=== PATIENT | male | born 1975 | race Caucasian/White ===

== ENCOUNTER → 2020-01-02 07:27 | Outpatient (CLI) | payer OTHER, SELFPAY ==
--- NOTE | 2020-01-02 | DI.MRI.S_ITS ---
PROCEDURE: MR HEAD/BRAIN WO/W CON INDICATIONS: Malignant neoplasm of brain, unspecified TECHNIQUE: Noncontrast axial T1 spin echo, axial T2 fast spin echo, sagittal and axial FLAIR, coronal T2 fast spin echo, axial gradient echo, axial diffusion and ADC through the brain. After the administration of contrast, axial and coronal 3D VIBE or T1 spin echo with fat saturation through the brain. COMPARISON: Outside Film, MR, MR BRAIN WITH/WITHOUT CONTRAST, 11/01/2019, 10:19. FINDINGS: These images again demonstrate postsurgical changes of right frontal craniectomy for resection of tumor in the right greater than left frontal lobes. Chronic mild dural thickening and hyper enhancement adjacent to the bone flap is unchanged and not unexpected. There is no other abnormal enhancement within or adjacent to the resection cavity to indicate recurrent disease. Nonenhancing flair signal abnormality adjacent to the resection cavity has not significantly changed when compared with 11/01/2019 examination. This again involves the chin you have the corpus callosum and subependymal margin of the ventricle along the left frontal horn. There no findings of mass effect or midline shift. Chronic lacunar infarct in the left lentiform nucleus is unchanged. There is no restricted diffusion to indicate recent ischemia. The major intracranial vascular flow-related signal voids are maintained. A few scattered punctate T2/FLAIR hyperintense foci are consistent with chronic microvascular ischemic change. IMPRESSION: Stable appearance when compared with 11/01/2019 examination, again with no pathologic enhancement within or adjacent to the resection cavity. Nonenhancing T2 signal abnormality adjacent to the resection cavity is unchanged in extent, suspicious for nonenhancing tumor. Dictated by: Agustin Joe M.D. on 01/02/2020 at 8:51 Approved by: Agustin Joe M.D. on 01/02/2020 at 9:00
--- NOTE | 2020-01-24 15:44 | ONC.MSW ---
Description: New Referral Navigation T/C, Care Coordination Activity: SCRAP BALLER made several calls between [facility] and [facility], [facility]. Pt's referral and auth were reportedly not done correctly on their end when they made the referral, then further errors were made when [facility] called re: referring him to [facility]. Pt does in fact have [facility]. The supervisor patching from [facility] helped this SCRAP BALLER in sorting out all of the details, she said that we will have the auth by tomorrow morning, Tuesday at the latest, and that this is all being done urgently by all involved. Called [facility] and spoke with the referring provider's nurse, who also sent over the tx plan for pt's Avastin. He will be on cycle 34, and is due next week, Tuesday. SCRAP BALLER informed him that we will still need to do the prior auth for the Avastin once Dr. Morris puts the order in, which can take a few days for authorization, but that we should be able to get him going [place], hopefully next week. Plan: This SCRAP BALLER will f/u Tuesday to confirm the auth has been received, and will meet with pt Tuesday as planned.
== END ==
PROVIDERS: PCP Family Medicine; Referring Provider Family Medicine; Visit Provider Internal Medicine Hematology & Oncology
DX: C71.9 Malignant neoplasm of brain, unspecified (principal)
CPT/HCPCS: 70553

== ENCOUNTER → 2020-02-29 08:13 | Outpatient (CLI) | payer MEDICARE, OTHER, SELFPAY ==
--- NOTE | 2020-02-29 08:15 | DI.MRI.S_ITS ---
PROCEDURE: MR HEAD/BRAIN WO/W CON INDICATIONS: astrocytoma TECHNIQUE: Noncontrast axial T1 spin echo, axial T2 fast spin echo, sagittal and axial FLAIR, coronal T2 fast spin echo, axial gradient echo, axial diffusion and ADC through the brain. After the administration of contrast, axial and coronal 3D VIBE or T1 spin echo with fat saturation through the brain. COMPARISON: Outside Film, MR, MR BRAIN WITH/WITHOUT CONTRAST, 04/18/2018, 10:55. Outside Film, MR, MR BRAIN WITH/WITHOUT CONTRAST, 11/01/2019, 10:19. Outside Film, MR, MR BRAIN WITH/WITHOUT CONTRAST, 08/21/2019, 10:29. Outside Film, MR, MR BRAIN WITH/WITHOUT CONTRAST, 05/28/2019, 13:21. Outside Film, MR, MR BRAIN WITH/WITHOUT CONTRAST, 03/20/2019, 9:18. Outside Film, MR, MR BRAIN WITH/WITHOUT CONTRAST, 01/15/2019, 11:58. Outside Film, MR, MR BRAIN WITH/WITHOUT CONTRAST, 11/16/2018, 13:54. Outside Film, MR, MR BRAIN WITH/WITHOUT CONTRAST, 11/16/2018, 13:54. [facility], MR, MR HEAD/BRAIN WO/W CON, 01/02/2020, 7:59. FINDINGS: Image quality: Excellent. CSF Spaces: Basal cisterns are patent. No extra-axial fluid collections. Ventricles are stable in size and shape. Postsurgical changes related to right frontal craniotomy are again noted. There is underlying smooth dural enhancement which may be postoperative in nature. Within the resection cavity, there is unchanged T2 hyperintense encephalomalacia. No definite focal abnormal or masslike enhancement identified. Overall stable appearance since the prior study. No evidence of acute ischemia. Intracranial flow voids are preserved. Orbits grossly unremarkable. Sinuses: Sinuses and mastoids appear clear. IMPRESSION: Overall, stable examination since 01/02/20 Dictated by: Bobby Vaca M.D. on 02/29/2020 at 9:47 Approved by: Bobby Vaca M.D. on 02/29/2020 at 9:56
== END ==
PROVIDERS: PCP Family Medicine; Referring Provider Internal Medicine Hematology & Oncology; Visit Provider Internal Medicine Hematology & Oncology
DX: C71.1 Malignant neoplasm of frontal lobe (principal); G93.89 Other specified disorders of brain; Z98.890 Other specified postprocedural states
CPT/HCPCS: 70553

== ENCOUNTER → 2020-05-01 12:04 | Outpatient (CLI) | payer MEDICARE, OTHER, SELFPAY ==
--- NOTE | 2020-05-01 12:08 | DI.MRI.S_ITS ---
PROCEDURE: MR HEAD/BRAIN WO/W CON INDICATIONS: Astrocytoma TECHNIQUE: Noncontrast axial T1 spin echo, axial T2 fast spin echo, sagittal and axial FLAIR, coronal T2 fast spin echo, axial gradient echo, axial diffusion and ADC through the brain. After the administration of contrast, axial and coronal 3D VIBE or T1 spin echo with fat saturation through the brain. COMPARISON: Outside Film, MR, MR BRAIN WITH/WITHOUT CONTRAST, 11/01/2019, 10:19. Outside Film, MR, MR BRAIN WITH/WITHOUT CONTRAST, 06/19/2018, 9:49. Outside Film, MR, MR BRAIN WITH/WITHOUT CONTRAST, 06/19/2018, 9:49. Outside Film, MR, MR BRAIN WITH/WITHOUT CONTRAST, 04/18/2018, 10:55. Outside Film, MR, MR BRAIN WITH/WITHOUT CONTRAST, 01/06/2018, 10:15. [facility], MR, MR HEAD/BRAIN WO/W CON, 01/02/2020, 7:59. [facility], MR, MR HEAD/BRAIN WO/W CON, 02/29/2020, 8:32. FINDINGS: Image quality: Excellent. CSF Spaces: Basal cisterns are patent. No extra-axial fluid collections. Ventricles are normal in size and shape. Brain: There is a 5.5 x 5.4 cm cavity in the right inferior frontal consistent with postsurgical change. There is peripheral vasogenic edema and gliosis. On postcontrast images, there is no abnormal postcontrast enhancement around right frontal surgical bed. No findings to suggest recurrent mass. No mass effect or midline shift. No intracranial bleeds. Diffusion-weighted images demonstrate no acute ischemic insults. No chronic ischemic insults. Normal intravascular flow voids are present. Skull and face: Calvarial marrow is normal in signal. Orbits appear normal. Sinuses: Sinuses and mastoids appear clear. IMPRESSION: Stable postsurgical changes in the right frontal lobe. No findings to suggest recurrent mass. No abnormal intracranial enhancement is present. Dictated by: Ivette Peacock M.D. on 05/01/2020 at 13:57 Approved by: Ivette Peacock M.D. on 05/01/2020 at 14:45
== END ==
PROVIDERS: PCP Family Medicine; Referring Provider Internal Medicine Hematology & Oncology; Visit Provider Internal Medicine Hematology & Oncology
DX: C71.1 Malignant neoplasm of frontal lobe (principal)
CPT/HCPCS: 70553

== ENCOUNTER → 2020-07-23 13:09 | Outpatient (CLI) | payer MEDICARE, OTHER, SELFPAY ==
--- NOTE | 2020-07-23 13:12 | DI.MRI.S_ITS ---
PROCEDURE: MR HEAD/BRAIN WO/W CON INDICATIONS: astrocytoma of the brain TECHNIQUE: Noncontrast axial T1 spin echo, axial T2 fast spin echo, sagittal and axial FLAIR, coronal T2 fast spin echo, axial gradient echo, axial diffusion and ADC through the brain. After the administration of contrast, axial and coronal 3D VIBE or T1 spin echo with fat saturation through the brain. COMPARISON: [facility], MR, MR HEAD/BRAIN WO/W CON, 02/29/2020, 8:32. [facility], MR, MR HEAD/BRAIN WO/W CON, 01/02/2020, 7:59. Outside Film, MR, MR BRAIN WITH/WITHOUT CONTRAST, 11/01/2019, 10:19. Outside Film, MR, MR BRAIN WITH/WITHOUT CONTRAST, 08/21/2019, 10:29. Outside Film, MR, MR BRAIN WITH/WITHOUT CONTRAST, 05/28/2019, 13:21. [facility], MR, MR HEAD/BRAIN WO/W CON, 05/01/2020, 12:23. FINDINGS: Image quality: Excellent. CSF Spaces: Basal cisterns are patent. No extra-axial fluid collections. Ventricles are normal in size and shape. Brain: No midline shift. Postsurgical changes related to prior right frontal resection. Associated adjacent white matter signal changes as before. Overall, grossly stable appearance No abnormal intracranial enhancement. The brainstem appears normal. Diffusion-weighted images demonstrate no acute ischemic insults. No chronic ischemic insults. Normal intravascular flow voids are present. Skull and face: Postsurgical calvarial changes on the right as before Sinuses: Sinuses and mastoids appear clear. IMPRESSION: Overall, grossly stable appearance and postsurgical changes. No specific evidence of active recurrent or residual tumor. Dictated by: Bobby Vaca M.D. on 07/23/2020 at 14:37 Approved by: Bobby Vaca M.D. on 07/23/2020 at 14:43
== END ==
PROVIDERS: PCP Family Medicine; Referring Provider Internal Medicine Hematology & Oncology; Visit Provider Internal Medicine Hematology & Oncology
DX: C71.9 Malignant neoplasm of brain, unspecified (principal); C71.1 Malignant neoplasm of frontal lobe; H54.7 Unspecified visual loss
CPT/HCPCS: 70553; A9579

== ENCOUNTER → 2020-09-10 07:12 | Outpatient (CLI) | payer MEDICARE, OTHER, SELFPAY ==
--- NOTE | 2020-09-10 07:15 | DI.MRI.S_ITS ---
PROCEDURE: MR HEAD/BRAIN WO/W CON INDICATIONS: glioblastoma TECHNIQUE: Noncontrast axial T1 spin echo, axial T2 fast spin echo, sagittal and axial FLAIR, coronal T2 fast spin echo, axial gradient echo, axial diffusion and ADC through the brain. After the administration of contrast, axial and coronal 3D VIBE or T1 spin echo with fat saturation through the brain. COMPARISON: [facility], MR, MR HEAD/BRAIN WO/W CON, 07/23/2020, 13:21. FINDINGS: Image quality: Excellent. CSF Spaces: Basal cisterns are patent. No extra-axial fluid collections. Ventricles are normal in size and shape. Brain: These images again demonstrate postsurgical changes of right frontal craniotomy and frontal lobe mass resection (reported as glioblastoma). The resection cavity is unchanged in size. There is no abnormal enhancement within in the resection cavity or along the resection cavity margin. No abnormal brain parenchymal enhancement otherwise. Nonenhancing FLAIR signal abnormality adjacent to the resection cavity is unchanged, including subependymal FLAIR signal abnormality crossing midline posterior to the genu of the corpus callosum and extending into the left frontal periventricular white matter. Nonenhancing FLAIR signal abnormality extending inferiorly along the fornix and anterior insular cortex into the mesial right temporal lobe is also unchanged. Skull and face: Calvarial marrow is normal in signal. Orbits appear normal. Sinuses: Sinuses and mastoids appear clear. IMPRESSION: Stable appearance of postoperative changes and non-enhancing FLAIR signal abnormality adjacent to the resection cavity. No new enhancement or increased extent of the nonenhancing FLAIR signal abnormality to indicate disease progression. Dictated by: Agustin Joe M.D. on 09/10/2020 at 9:49 Approved by: Agustin Joe M.D. on 09/10/2020 at 9:54
== END ==
PROVIDERS: PCP Family Medicine; Referring Provider Internal Medicine Hematology & Oncology; Visit Provider Internal Medicine Hematology & Oncology
DX: C71.9 Malignant neoplasm of brain, unspecified (principal); H54.7 Unspecified visual loss
CPT/HCPCS: 70553

== ENCOUNTER 2020-10-03 09:36 | Day surgery (SDC) | payer MEDICARE, OTHER, SELFPAY ==
[2020-10-03 10:56] VITALS: BP 130/94; PULSE 81; RESP 13; TEMP 36.3; O2SAT 97; BMI 27.8
[2020-10-03 11:09] LABS: COVID19 -Nasal RAPID Negative (Negative)
[2020-10-03] MEDS: LACTATED RINGERS 1,000 ML 200 ML IV (11:11)
[2020-10-03 11:17] VITALS: BMI 27.8
--- NOTE | 2020-10-03 12:36 | PM.PREOP ---
Pre-operative Note COVID-19 COVID-19 status: Negative Result date/Date tested (Pos, Neg/Pending): 10/03/20 Interval Note History & Physical reviewed/Exam performed by Physician: Yes Changes to H&P: No ASA Class (for procedural sedation): II
[2020-10-03] MEDS: fentaNYL 250 MCG/5 ML INJ IV (13:02)
[2020-10-03] MEDS: MIDAZOLAM 5 MG/5 ML VIAL IV (13:02)
--- NOTE | 2020-10-03 13:18 | PM.OP.ENDO ---
Operative Date/Time/Diagnoses Date of procedure: 10/03/20 Time of procedure: 13:18 Pre-op diagnosis: Rectal bleeding Post-op diagnosis: same (Hemorrhoids at the anal verge. No ulceration at this time.) Procedure & Clinicians Study performed: Colonoscopy Same procedure as scheduled: Yes Indications: Determine cause of rectal bleeding Surgeon: Prem Dotson Procedure Notes SCOAP/Timeout: Performed Procedure in detail: The patient was placed in the left lateral decubitus position and underwent IV sedation directed by the surgeon consisting of fentanyl and Versed. Digital exam was unremarkable. The scope was inserted and advanced through the rectum into the sigmoid, descending, transverse, and ascending colon. No lesions were seen.. The cecum was reached identified by the ileocecal valve and the appendiceal opening. The ileocecal valve was successfully cannulated. The terminal ileum was normal in appearance. The scope was gradually brought out. No Polyps were found. The scope ultimately was retroflexed in the rectum. The appearance was normal as far as could be seen. I brought the scope slowly through the anal verge and noted to hemorrhoids right at the anal verge. These were small and not really amenable to banding.. The scope was removed and the patient tolerated the procedure well. Prep was excellent. Scope withdrawal time: 5 minutes Sedation minutes: 19 Findings: internal hemorrhoids Specimen(s): none sent Complications: none Post-procedure Recommendations: Colonscopy in 10 years and Other recommendation (Start Metamucil daily) Follow up: as needed Disposition: PACU
[2020-10-03 13:22] VITALS: BP 125/89; PULSE 105; RESP 14; TEMP 36.4; O2SAT 96
[2020-10-03 13:26] VITALS: BP 126/96; PULSE 102; RESP 12; O2SAT 96
[2020-10-03 13:31] VITALS: BP 126/96; PULSE 102; RESP 16; O2SAT 97
[2020-10-03 13:36] VITALS: BP 132/95; PULSE 93; RESP 12; O2SAT 97
[2020-10-03 14:15] VITALS: BP 141/91; PULSE 92; RESP 16; TEMP 36.7; O2SAT 97
== END 2020-10-03 14:20 | disposition home or self-care (01) ==
PROVIDERS: PCP Family Medicine; Referring Provider Specialist; Visit Provider Specialist
PROC: 0DJD8ZZ Inspection of Lower Intestinal Tract, Via Natural or Artificial Opening Endoscopic (ICD-10-PCS; CPT 45378; principal; 2020-10-03 11:30)
DX: K64.8 Other hemorrhoids (principal); I10 Essential (primary) hypertension
CPT/HCPCS: 45378; 87635; 99152; J2250; J3010

== ENCOUNTER → 2020-10-30 17:41 | Outpatient (CLI) | payer MEDICARE, OTHER, SELFPAY ==
--- NOTE | 2020-10-30 17:42 | DI.MRI.S_ITS ---
PROCEDURE: MR HEAD/BRAIN WO/W CON INDICATIONS: astrocytoma TECHNIQUE: Noncontrast axial T1 spin echo, axial T2 fast spin echo, sagittal and axial FLAIR, coronal T2 fast spin echo, axial gradient echo, axial diffusion and ADC through the brain. After the administration of contrast, axial and coronal 3D VIBE or T1 spin echo with fat saturation through the brain. COMPARISON: Outside Film, MR, MR BRAIN WITH/WITHOUT CONTRAST, 03/20/2019, 9:18. Outside Film, MR, MR BRAIN WITH/WITHOUT CONTRAST, 08/31/2018, 12:05. Outside Film, MR, MR BRAIN WITH/WITHOUT CONTRAST, 06/19/2018, 9:49. [facility], MR, MR HEAD/BRAIN WO/W CON, 09/10/2020, 7:29. [facility], MR, MR HEAD/BRAIN WO/W CON, 07/23/2020, 13:21. [facility], MR, MR HEAD/BRAIN WO/W CON, 05/01/2020, 12:23. [facility], MR, MR HEAD/BRAIN WO/W CON, 02/29/2020, 8:32. [facility], MR, MR HEAD/BRAIN WO/W CON, 01/02/2020, 7:59. Outside Film, MR, MR BRAIN WITH/WITHOUT CONTRAST, 11/01/2019, 10:19. Outside Film, MR, MR BRAIN WITH/WITHOUT CONTRAST, 08/21/2019, 10:29. FINDINGS: Image quality: Excellent. CSF Spaces: Basal cisterns are patent. No extra-axial fluid collections. Ventricles are normal in size and shape. Brain: Right frontal surgical resection cavity is stable compared to prior exams. Increased T2/FLAIR signal in the right frontal lobe, genu of the corpus callosum, anterior-medial right temporal lobe and anterior right insula is stable in size and contour compared to prior exams. No midline shift. No acute intracranial bleeds. No abnormal intracranial enhancement. The brainstem appears normal. Diffusion-weighted images demonstrate no acute ischemic insults. No chronic ischemic insults. Normal intravascular flow voids are present. Skull and face: Postsurgical changes compatible prior right frontal-temporal craniotomy are stable. Calvarial marrow is normal in signal. Orbits appear normal. Sinuses: Sinuses and mastoids appear clear. IMPRESSION: 1. Stable postsurgical changes. 2. No suspicious postcontrast enhancement. 3. T2 signal abnormality adjacent to right frontal surgical resection cavity is stable and size and contour compared to prior exams. No new signal abnormalities identified within the brain parenchyma. Dictated by: Imani Orellana MD, PhD on 10/31/2020 at 9:03 Approved by: Imani Orellana MD, PhD on 10/31/2020 at 9:13
== END ==
PROVIDERS: PCP Family Medicine; Referring Provider Internal Medicine Hematology & Oncology; Visit Provider Internal Medicine Hematology & Oncology
DX: H54.7 Unspecified visual loss (principal); C71.9 Malignant neoplasm of brain, unspecified
CPT/HCPCS: 70553; A9579

== ENCOUNTER → 2020-12-18 10:42 | Outpatient (CLI) | payer MEDICARE, OTHER, SELFPAY ==
--- NOTE | 2020-12-18 10:44 | DI.MRI.S_ITS ---
PROCEDURE: MR HEAD/BRAIN WO/W CON INDICATIONS: astrocytoma TECHNIQUE: Noncontrast axial T1 spin echo, axial T2 fast spin echo, sagittal and axial FLAIR, coronal T2 fast spin echo, axial gradient echo, axial diffusion and ADC through the brain. After the administration of contrast, axial and coronal 3D VIBE or T1 spin echo with fat saturation through the brain. COMPARISON: [facility], MR, MR HEAD/BRAIN WO/W CON, 10/30/2020, 17:54. FINDINGS: Image quality: Excellent. CSF Spaces: Basal cisterns are patent. No extra-axial fluid collections. Ventricles are normal in size and shape. Brain: No midline shift. No acute intracranial bleeds or masses. No abnormal intracranial enhancement. Right frontal resection cavity is present with moderate surrounding ill-defined FLAIR signal elevation, as before, consistent with postsurgical sequelae. There is no abnormal enhancement within or adjacent to the resection cavity, or elsewhere intracranially. The brainstem appears normal. Diffusion-weighted images demonstrate no acute ischemic insults. No chronic ischemic insults. Normal intravascular flow voids are present. Skull and face: Right frontal craniotomy. Calvarial marrow is otherwise normal in signal. Orbits appear normal. Sinuses: Sinuses and mastoids appear clear. IMPRESSION: 1. Postsurgical sequelae. 2. No evidence of tumor recurrence. Dictated by: Amy Mason M.D. on 12/18/2020 at 13:15 Approved by: Amy Mason M.D. on 12/18/2020 at 13:17
== END ==
PROVIDERS: PCP Family Medicine; Referring Provider Internal Medicine Hematology & Oncology; Visit Provider Internal Medicine Hematology & Oncology
DX: C71.1 Malignant neoplasm of frontal lobe (principal)
CPT/HCPCS: 70553

== ENCOUNTER → 2021-03-23 11:53 | Outpatient (CLI) | payer MEDICARE, OTHER, SELFPAY ==
[2021-03-23 15:46] LABS: Collection Time Urine 24 Hours; Protein (Total) Urine Random 140 mg/dL (0-12); Total Protein 24 Hour Urine 2100 mg/day (42-225); Total Volume Urine 1500 mL
== END ==
PROVIDERS: PCP Family Medicine; Referring Provider Internal Medicine Hematology & Oncology; Visit Provider Internal Medicine Hematology & Oncology
DX: R80.9 Proteinuria, unspecified (principal)
CPT/HCPCS: 84156

== ENCOUNTER → 2021-04-10 12:47 | Outpatient (CLI) | payer MEDICARE, OTHER, SELFPAY ==
--- NOTE | 2021-04-10 12:49 | DI.MRI.S_ITS ---
PROCEDURE: MR HEAD/BRAIN WO/W CON INDICATIONS: brain tumor TECHNIQUE: Noncontrast axial T1 spin echo, axial T2 fast spin echo, sagittal and axial FLAIR, coronal T2 fast spin echo, axial gradient echo, axial diffusion and ADC through the brain. After the administration of contrast, axial and coronal 3D VIBE or T1 spin echo with fat saturation through the brain. COMPARISON: [facility], , MR HEAD/BRAIN WO/W CON, 10/30/2020, 17:54. [facility], , MR HEAD/BRAIN WO/W CON, 09/10/2020, 7:29. [facility], MR, MR HEAD/BRAIN WO/W CON, 07/23/2020, 13:21. [facility], MR, MR HEAD/BRAIN WO/W CON, 05/01/2020, 12:23. [facility], MR, MR HEAD/BRAIN WO/W CON, 02/29/2020, 8:32. [facility], , MR HEAD/BRAIN WO/W CON, 01/02/2020, 7:59. [facility], , MR HEAD/BRAIN WO/W CON, 12/18/2020, 11:01. FINDINGS: Image quality: Excellent. CSF Spaces: Basal cisterns are patent. No extra-axial fluid collections. Ventricles are normal in size and shape. Brain: There is again seen a prominent resection cavity and mildly in the right frontal lobe, with volume loss and surrounding encephalomalacia. A portion of the left frontal lobe is also involved. Careful scrutiny is given to the margins of the resection cavity. No abnormal enhancement can be seen along the margins of the resection cavity to suggest tumor recurrence. No masses or abnormal enhancement can be seen elsewhere. No midline shift. The brainstem appears normal. Diffusion-weighted images demonstrate no acute ischemic insults. Normal intravascular flow voids are present. Skull and face: Right-sided craniotomy changes are seen. Calvarial marrow is normal in signal. Orbits appear normal. Sinuses: Sinuses and mastoids appear clear. IMPRESSION: Stable resection cavity, primarily involving the right frontal lobe. No abnormal enhancement or new masses can be seen to suggest tumor recurrence. Dictated by: Michael Perez M.D. on 04/10/2021 at 12:34 Approved by: Michael Perez M.D. on 04/10/2021 at 12:37
== END ==
PROVIDERS: PCP Family Medicine; Referring Provider Internal Medicine Hematology & Oncology; Visit Provider Internal Medicine Hematology & Oncology
DX: H54.7 Unspecified visual loss (principal); C71.9 Malignant neoplasm of brain, unspecified
CPT/HCPCS: 70553

== ENCOUNTER → 2021-07-15 16:15 | Outpatient (CLI) | payer MEDICARE, OTHER, SELFPAY ==
--- NOTE | 2021-07-15 16:23 | DI.MRI.S_ITS ---
PROCEDURE: MR HEAD/BRAIN WO/W CON INDICATIONS: astrocytoma TECHNIQUE: Noncontrast axial T1 spin echo, axial T2 fast spin echo, sagittal and axial FLAIR, coronal T2 fast spin echo, axial gradient echo, axial diffusion and ADC through the brain. After the administration of contrast, axial and coronal 3D VIBE or T1 spin echo with fat saturation through the brain. COMPARISON: [facility], , MR HEAD/BRAIN WO/W CON, 12/18/2020, 11:01. [facility], , MR HEAD/BRAIN WO/W CON, 10/30/2020, 17:54. [facility], , MR HEAD/BRAIN WO/W CON, 09/10/2020, 7:29. [facility], MR, MR HEAD/BRAIN WO/W CON, 07/23/2020, 13:21. [facility], , MR HEAD/BRAIN WO/W CON, 05/01/2020, 12:23. [facility], , MR HEAD/BRAIN WO/W CON, 02/29/2020, 8:32. [facility], , MR HEAD/BRAIN WO/W CON, 04/10/2021, 12:59. FINDINGS: Image quality: Excellent. CSF Spaces: Basal cisterns are patent. No extra-axial fluid collections. Ventricles are normal in size and shape. Brain: Right frontal lobe resection changes are seen, with volume loss and surrounding encephalomalacia. The resection cavity crosses the midline to involve a small portion of the left frontal lobe as well. No abnormal enhancement can be seen along the resection cavity margins. No new masses seen. No midline shift. The brainstem appears normal. Diffusion-weighted images demonstrate no acute ischemic insults. No chronic ischemic insults. Normal intravascular flow voids are present. Skull and face: Right frontal craniotomy changes are seen. Calvarial marrow is normal in signal. Orbits appear normal. Sinuses: Sinuses and mastoids appear clear. IMPRESSION: Right frontal lobe resection changes are seen, without findings of local recurrence. No new masses are seen. Dictated by: Michael Perez M.D. on 07/15/2021 at 16:40 Approved by: Michael Perez M.D. on 07/15/2021 at 16:42
== END ==
PROVIDERS: PCP Family Medicine; Referring Provider Internal Medicine Hematology & Oncology; Visit Provider Internal Medicine Hematology & Oncology
DX: C71.1 Malignant neoplasm of frontal lobe (principal); G93.89 Other specified disorders of brain
CPT/HCPCS: 70553; A9579

== ENCOUNTER → 2021-12-13 10:46 | Outpatient (CLI) | payer MEDICARE, OTHER, SELFPAY ==
--- NOTE | 2021-12-13 10:48 | DI.MRI.S_ITS ---
PROCEDURE: MR HEAD/BRAIN WO/W CON INDICATIONS: history Brain tumor TECHNIQUE: Noncontrast axial T1 spin echo, axial T2 fast spin echo, sagittal and axial FLAIR, coronal T2 fast spin echo, axial gradient echo, axial diffusion and ADC through the brain. After the administration of contrast, axial and coronal 3D VIBE or T1 spin echo with fat saturation through the brain. COMPARISON: [facility], , MR HEAD/BRAIN WO/W CON, 07/15/2021, 16:34. FINDINGS: Image quality: Excellent. CSF Spaces: Basal cisterns are patent. Right frontal resection cavity, as before. Ventricles are normal in size and shape. Brain: Again noted is right frontal lobe resection with cystic encephalomalacia. The resection cavity is again noted to cross the midline to involve a small portion of the medial left frontal lobe. There is no peripheral enhancement along the resection cavity. However, there is now a new focal ring-enhancing lesion in the anterior inferior left frontal lobe measuring approximately 7 mm in diameter. Deep white matter gliosis is present, right greater than left, likely representing post treatment change. There is a small amount of vasogenic edema related to the new inferior anterior left frontal lesion. Diffusion-weighted images demonstrate no acute ischemic insults. No chronic ischemic insults. Normal intravascular flow voids are present. Skull and face: Right frontal craniotomy changes again noted. Calvarial marrow is normal in signal. Orbits appear normal. Sinuses: Sinuses and mastoids appear clear. IMPRESSION: 1. Remote resection of right frontal astrocytoma with stable resection changes without enhancement of the cavity and subjacent deep white matter changes. 2. Interval progression of disease. There is now a small ring-enhancing lesion in the anterior inferior left frontal lobe. Dictated by: John Amaro M.D. on 12/14/2021 at 9:18 Approved by: John Amaro M.D. on 12/14/2021 at 9:40
== END ==
PROVIDERS: PCP Family Medicine; Referring Provider Internal Medicine Hematology & Oncology; Visit Provider Internal Medicine Hematology & Oncology
DX: C71.1 Malignant neoplasm of frontal lobe (principal); G93.89 Other specified disorders of brain
CPT/HCPCS: 70553; A9579

== ENCOUNTER → 2022-01-30 11:27 | Outpatient (CLI) | payer MEDICARE, OTHER, SELFPAY ==
--- NOTE | 2022-01-30 11:29 | DI.MRI.S_ITS ---
PROCEDURE: MR HEAD/BRAIN WO/W CON INDICATIONS: astrocytoma TECHNIQUE: Noncontrast axial T1 spin echo, axial T2 fast spin echo, sagittal and axial FLAIR, coronal T2 fast spin echo, axial gradient echo, axial diffusion and ADC through the brain. After the administration of contrast, axial and coronal and sagittal T1 spin echo with fat saturation through the brain. COMPARISON: [facility], , MR HEAD/BRAIN WO/W CON, 12/13/2021, 10:56. FINDINGS: Image quality: Excellent. CSF spaces: Basal cisterns are patent. No extra-axial fluid collections. Ventricles are normal in size and shape. Brain: No midline shift. No acute intracranial bleeds . Right anteroinferior frontal resection cavity is present, with moderate surrounding ill-defined FLAIR signal elevation within the right frontal lobe, as before. The previously seen peripherally enhancing mass within the left anteroinferior frontal lobe measuring 7 mm craniocaudal is not significantly changed. There is a new nodular enhancing focus within the left frontal periventricular white matter measuring roughly 4 mm diameter. Moderate ill-defined FLAIR signal elevation within the adjacent aspects of the left anteroinferior frontal lobe, consistent with vasogenic edema, is unchanged. There is cerebral volume loss for age. There is periventricular white matter chronic small vessel ischemic change. The brainstem appears normal. Diffusion-weighted images demonstrate no acute ischemic insults. No chronic ischemic insults. Normal intravascular flow voids are present. Skull and face: Left frontal craniotomy has been performed. Calvarial marrow is otherwise normal in signal. Orbits appear normal. Sinuses: Sinuses and mastoids appear clear. IMPRESSION: 1. New enhancing focus within the left frontal periventricular white matter, compatible with progressive neoplasm. 2. No change in left frontal enhancing focus. 3. Postsurgical sequelae. Dictated by: Amy Mason M.D. on 02/01/2022 at 8:50 Approved by: Amy Mason M.D. on 02/01/2022 at 8:55
== END ==
PROVIDERS: PCP Family Medicine; Referring Provider Internal Medicine Hematology & Oncology; Visit Provider Internal Medicine Hematology & Oncology
DX: C71.1 Malignant neoplasm of frontal lobe (principal); Z98.890 Other specified postprocedural states
CPT/HCPCS: 70553

== ENCOUNTER → 2022-06-08 10:55 | Outpatient (CLI) | payer MEDICARE, OTHER, SELFPAY ==
--- NOTE | 2022-06-08 10:59 | DI.MRI.S_ITS ---
PROCEDURE: MR HEAD/BRAIN WO/W CON INDICATIONS: ASTROCYTOMA TECHNIQUE: Noncontrast axial T1 spin echo, axial T2 fast spin echo, sagittal and axial FLAIR, coronal T2 fast spin echo, axial gradient echo, axial diffusion and ADC through the brain. After the administration of contrast, axial and coronal and sagittal 3D VIBE or T1 spin echo with fat saturation through the brain. COMPARISON: [facility], MR, MR HEAD/BRAIN WO/W CON, 01/30/2022, 11:53. [facility] Film, MR, MR BRAIN WITH/WITHOUT CONTRAST, 11/01/2019, 10:19. [facility], MR, MR HEAD/BRAIN WO/W CON, 01/02/2020, 7:59. [facility], MR, MR HEAD/BRAIN WO/W CON, 07/15/2021, 16:34. [facility], MR, MR HEAD/BRAIN WO/W CON, 12/13/2021, 10:56. FINDINGS: Image quality: Excellent. CSF Spaces: Basal cisterns are patent. No extra-axial fluid collections. Ventricles are normal in size and shape. Brain: Right frontal lobe resection change can be seen inferiorly. There is volume loss and encephalomalacia. There is encephalomalacia seen involving the inferior medial left frontal lobe. Within the inferior medial left frontal lobe, there is a rim enhancing 15 x 14 mm in greatest axial dimension, with a craniocaudal extent of 12 mm. Just superior and posterior to the primary nodule, there is an additional nodule seen that measures 5 x 5 x 4 mm, which is slightly increased in size compared to the prior. No midline shift. The brainstem appears normal. Diffusion-weighted images demonstrate no acute ischemic insults. Normal intravascular flow voids are present. Skull and face: Right-sided craniotomy changes are seen. Calvarial marrow is normal in signal. Orbits appear normal. Sinuses: Sinuses and mastoids appear clear. IMPRESSION: Interval worsening of recurrent neoplasm within the inferior left frontal lobe. Prior right frontal lobe resection change. Dictated by: Michael Perez M.D. on 06/08/2022 at 10:54 Approved by: Michael Perez M.D. on 06/08/2022 at 10:58
== END ==
PROVIDERS: PCP Family Medicine; Referring Provider Internal Medicine Hematology & Oncology; Visit Provider Internal Medicine Hematology & Oncology
DX: G93.89 Other specified disorders of brain (principal); C71.1 Malignant neoplasm of frontal lobe
CPT/HCPCS: 70553

== ENCOUNTER → 2022-08-25 11:23 | Outpatient (CLI) | payer MEDICARE, OTHER, SELFPAY ==
--- NOTE | 2022-08-25 11:24 | DI.MRI.S_ITS ---
PROCEDURE: MR HEAD/BRAIN WO CON INDICATIONS: astrocytomata, blindness TECHNIQUE: Noncontrast axial T1 spin echo, axial T2 fast spin echo, sagittal and axial FLAIR, coronal T2 fast spin echo, axial gradient echo, axial diffusion and ADC through the brain. COMPARISON: [facility], MR, MR HEAD/BRAIN WO/W CON, 07/15/2021, 16:34. [facility], MR, MR HEAD/BRAIN WO/W CON, 04/10/2021, 12:59. [facility], MR, MR HEAD/BRAIN WO/W CON, 12/13/2021, 10:56. [facility], MR, MR HEAD/BRAIN WO/W CON, 06/08/2022, 11:03. [facility], MR, MR HEAD/BRAIN WO/W CON, 01/30/2022, 11:53. FINDINGS: Image quality: Limited by lack of IV contrast CSF Spaces: Basal cisterns are patent. No extra-axial fluid collections. Ventricles are normal in size and shape. Brain: Resection change is seen involving the right frontal lobe. Broad areas of encephalomalacia can be seen involving both frontal lobes. The degree of parenchymal edema is worse compared to the prior examination, particularly involving the left frontal lobe. There is also involvement of the left basal ganglia and the left cerebral peduncle with edema, which is new compared to the 06/08/2022 examination. Mass effect from swelling of the left lower lobe can be seen, with mild midline shift anteriorly and inferiorly measuring 2-3 mm, as on series 9, image 12. The previously seen mild enhancing masses involving the left frontal lobe are not well seen on this study, although no contrast is given. No intracranial masses or hemorrhage. Sorensen/white matter interface is normal. Brainstem appears normal. Diffusion-weighted images demonstrate no acute ischemic insult. Normal intravascular flow voids are present. Skull and face: Calvarium has normal marrow signal. Orbits appear normal. Sinuses: Sinuses and mastoids are clear. IMPRESSION: Worsening edema seen involving the left frontal lobe, with edema now also seen involving the left basal ganglia and the left cerebral peduncle. Mass effect is seen, with mild midline shift anteriorly and inferiorly. Stable right frontal lobe resection change. Dictated by: Michael Perez M.D. on 08/25/2022 at 12:07 Approved by: Michael Perez M.D. on 08/25/2022 at 12:14
== END ==
PROVIDERS: PCP Family Medicine; Referring Provider Internal Medicine Hematology & Oncology; Visit Provider Internal Medicine Hematology & Oncology
DX: C71.9 Malignant neoplasm of brain, unspecified (principal); H54.7 Unspecified visual loss; G93.6 Cerebral edema
CPT/HCPCS: 70551

== ENCOUNTER → 2022-09-03 09:03 | Outpatient (CLI) | payer MEDICARE, OTHER, SELFPAY ==
--- NOTE | 2022-09-03 | DI.MRI.S_ITS ---
PROCEDURE: MR HEAD/BRAIN W CON INDICATIONS: Malignant neoplasm of brain, unspecified TECHNIQUE: Noncontrast images were recently performed and not repeated After the administration of contrast, axial and coronal and sagittal VIBE with fat saturation through the brain. COMPARISON: [facility], MR, MR HEAD/BRAIN WO/W CON, 06/08/2022, 11:03. [facility], MR, MR HEAD/BRAIN WO CON, 08/25/2022, 12:14. FINDINGS: On these contrast enhanced images, there is poorly defined enhancement seen involving the left frontal lobe anteriorly and inferiorly. This measures 2.9 x 4.3 x 2.9 cm. There is moderate surrounding edema, which is better demonstrated on the recent prior contrast enhanced study. Within the left cerebral peduncle, there is an additional enhancing focus measuring 9 x 8 mm, as on series 5, image 84. Moderate surrounding edema is seen. Within the region of the right thalamus, there is an additional mild focus of enhancement seen, as on series 5, image 89, measuring 2 mm. Prior right frontal lobe resection change can be seen. No definite abnormal enhancement can be seen adjacent to the resection cavity. Right frontal craniotomy change is noted. No definite paranasal sinus disease can be seen. Mild leftward nasal septal deviation can be seen. IMPRESSION: Enhancing brain neoplasm seen, which is clearly worse compared to the 06/08/2022 contrast enhanced MRI. Dictated by: Michael Perez M.D. on 09/03/2022 at 9:56 Approved by: Michael Perez M.D. on 09/03/2022 at 10:02
== END ==
PROVIDERS: PCP Family Medicine; Referring Provider Physician Assistant; Visit Provider Physician Assistant
DX: C71.1 Malignant neoplasm of frontal lobe (principal); G93.6 Cerebral edema; J34.2 Deviated nasal septum
CPT/HCPCS: 70552

== ENCOUNTER → 2022-11-29 09:10 | Outpatient (CLI) | payer MEDICARE, OTHER, SELFPAY ==
--- NOTE | 2022-11-29 | DI.MRI.S_ITS ---
PROCEDURE: MR HEAD/BRAIN WO/W CON INDICATIONS: Malignant neoplasm of frontal lobe TECHNIQUE: Noncontrast axial T1 spin echo, axial T2 fast spin echo, sagittal and axial FLAIR, coronal T2 fast spin echo, axial gradient echo, axial diffusion and ADC through the brain. After the administration of contrast, axial and coronal and sagittal 3D VIBE or T1 spin echo with fat saturation through the brain. COMPARISON: [facility], MR, MR HEAD/BRAIN WO/W CON, 06/08/2022, 11:03. FINDINGS: Image quality: Excellent. CSF Spaces: Basal cisterns are patent. No extra-axial fluid collections. Ventricles are normal in size and shape. Brain: No acute intracranial bleeds. There is a right frontal resection cavity, as before. The previously seen peripherally enhancing mass within the left anteroinferior frontal lobe has increased in size, currently measuring roughly 50 mm anteroposterior by 32 mm transverse by 37 mm craniocaudal. Severe surrounding ill-defined FLAIR signal elevation, compatible with vasogenic edema, has increased in extent, spanning roughly 83 mm anteroposterior. There is moderate low gradient echo signal intensity material within this left frontal mass, compatible with chronic hemorrhagic sequelae. Diffuse left-sided frontal sulcal effacement is present. There is mild rightward midline shift at 3 mm. There is a new peripherally enhancing cystic focus within the left inferomedial thalamus extending into the left cerebral peduncle, measuring roughly 15 mm diameter, and demonstrating moderate surrounding FLAIR signal elevation. There is a new, 3 mm enhancing focus within the right hypothalamic region, with moderate surrounding FLAIR signal elevation. The brainstem otherwise appears normal. Diffusion-weighted images demonstrate no acute ischemic insults. No chronic ischemic insults. Normal intravascular flow voids are present. Skull and face: Calvarial marrow is normal in signal. Orbits appear normal. Sinuses: Sinuses and mastoids appear clear. IMPRESSION: 1. Increased left frontal malignancy with internal hemorrhagic products, as well as severe surrounding vasogenic edema. New mild rightward midline shift. 2. There has been spread of malignancy to the left thalamus and cerebral peduncle as well as the right hypothalamus with surrounding vasogenic edema. 3. Postsurgical sequelae. Dictated by: Amy Mason M.D. on 11/29/2022 at 9:39 Approved by: Amy Mason M.D. on 11/29/2022 at 9:45
== END ==
PROVIDERS: PCP Family Medicine; Referring Provider Internal Medicine Hematology & Oncology; Visit Provider Internal Medicine Hematology & Oncology
DX: C71.1 Malignant neoplasm of frontal lobe (principal)
CPT/HCPCS: 70553; A9579

== ENCOUNTER 2023-01-16 11:28 | Emergency (ER) | payer MEDICARE, OTHER, SELFPAY ==
[2023-01-16] VITALS (12 sets, daily range): BP systolic 134–156; BP diastolic 87–105; PULSE 82–95; RESP 13–25; TEMP 36.7; O2SAT 96–99
--- NOTE | 2023-01-16 11:50 | DI.CT.S_ITS ---
PROCEDURE: CT HEAD/BRAIN WO CON INDICATIONS: +brain CA, new urine incontinen pupil discrep tounge deviat TECHNIQUE: Noncontrast 4.5 mm thick angled axial sections acquired from the foramen magnum to the vertex, with coronal and sagittal reformats. For radiation dose reduction, the following was used: automated exposure control, adjustment of mA and/or kV according to patient size. COMPARISON: [facility], MR, MR HEAD/BRAIN WO/W CON, 11/29/2022, 9:41. FINDINGS: Image quality: Excellent. CSF spaces: Basal cisterns are patent. No extra-axial fluid collections. Ventricles are normal in size and shape. Brain: Right frontal cranioplasty has been performed with resection of a right frontal tumor. There is a cystic space in the right frontal lobe measuring 6.1 x 3.2 cm on coronal section extending slightly to the left of the falx, unchanged compared to MRI on 11/29/2022. Bifrontal lobe white matter edema is unchanged compared to prior MRI. There is prominence of the 3rd ventricle. Rightward midline shift seen on the prior study has resolved. Previously seen spread of malignancy to the left frontal lobe and thalamus are not visualized with CT. Skull and face: Calvarium and visualized facial bones are intact, without suspicious lesions. Sinuses: Visualized sinuses and mastoids are clear. IMPRESSION: 1. Postoperative changes of resection of a right frontal lobe tumor. 2. Spread of malignancy to the left frontal lobe and left thalamus as seen on prior MRI on postcontrast imaging is not visualized with CT, however there is no gross structural change compared to the prior MRI on 11/29/2022. 3. No acute intracranial hemorrhage. Dictated by: Tawanda Hector M.D. on 01/16/2023 at 11:36 Approved by: Tawanda Hector M.D. on 01/16/2023 at 11:44
[2023-01-16 12:23] LABS: Hematocrit 41.9 % (41-53); Hemoglobin 15.1 g/dL (13.5-17.5); Mean Corpuscular Volume 97.1 fL (80-100); Platelet Count 182 X10^3/uL (150-400); Red Blood Cell Count 4.32 X10^6/uL (4.5-5.9); Red Cell Distribution Width 14.9 % (11.6-14.8); White Blood Cell Count 10.4 X10^3/uL (4.5-11.0)
[2023-01-16 12:25] LABS: Add Manual Diff / Slide Review YES
[2023-01-16 12:34] LABS: INR 1.1 (0.9-1.3); Prothrombin Time 12.9 SECONDS (10.1-12.7)
[2023-01-16 12:37] LABS: Alanine Aminotransferase 61 IU/L (<50); Albumin 3.9 g/dL (3.5-5.0); Albumin Globulin Ratio 1.3 (1.0-2.8); Alkaline Phosphatase 118 U/L (38-126); Aspartate Aminotransferase 26 IU/L (17-59); BUN Creatinine Ratio 19.3 (6-22); Bilirubin Total 0.4 mg/dL (0.2-1.3); Blood Urea Nitrogen 16 mg/dL (9-20); Calcium 8.9 mg/dL (8.4-10.2); Carbon Dioxide 35 mmol/L (22-32); Chloride 96 mmol/L (98-107); Creatine Kinase 21 U/L (55-170); Estimated Glomerular Filt Rate > 60 mL/min (>60); Glucose 286 mg/dL (70-100); HEMOLYSIS < 15 (0-50); Potassium 3.5 mmol/L (3.4-5.1); Sodium 135 mmol/L (137-145); Total Protein 6.9 g/dL (6.3-8.2)
[2023-01-16 12:41] LABS: Neutrophils Absolute Manual 5200 /uL (3000-5900); RBC Morphology Normal Morphology; Total Cells Counted 100
[2023-01-16 12:45] LABS: Phenytoin / Dilantin 20.8 ug/mL (10-20)
[2023-01-16 12:48] LABS: COVID19 -Nasal RAPID Negative (Negative)
[2023-01-16 12:49] LABS: Troponin I < 0.012 ng/mL (0.01-0.034)
[2023-01-16] MEDS: SODIUM CHLORIDE 0.9% 1,000 ML 500 ML IV (12:58)
[2023-01-16 13:26] LABS: Appearance Urine UA SL CLOUDY; Bilirubin Urine UA NEGATIVE (NEGATIVE); Color Urine UA YELLOW; Glucose Urine UA 3+ g/dL (Negative); Ketones Urine UA NEGATIVE (NEGATIVE); Leukocyte Esterase Urine UA NEGATIVE (NEGATIVE); Nitrite Urine UA NEGATIVE (Negative); Occult Blood Urine UA 3+ (Negative); Protein Urine UA 1+ (Negative); Specific Gravity Urine UA >=1.030 (1.000-1.035); Urobilinogen Urine UA 0.2 E.U./dL (0.2)
--- NOTE | 2023-01-16 13:34 | ED_ITS ---
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 Patient is still on dexamethasone daily as well as phenytoin and Keppra for seizure. Patient presents with a rash in his left axilla which he states started a couple days ago slightly irritated little bit painful. Only on the left side not spreading. Patient states his has noticed he seems off. They both noticed that he is had a little bit more urinary incontinence he occasionally has accidents but have noted over the past 2 or 3 days he is having droplets to the floor on the way to the bathroom and yesterday had several episodes where he soaked his underwear. He denies dysuria, urgency or frequency otherwise, he states because of his blindness it is difficult for him to get to the bathroom quickly. They have noted that he is fallen a couple more times recently. He notes that he often gets orthostatic and has to take some time to get up before he can start walking and that this also delays his ability to get to the bathroom. and patient do not describe major changes to his mental status. He denies headache, no fevers or chills. He states he is 100% blind after an injury with a stable to his eye when he was young and then a retinal injury later in life and his brain tumor with resection. No chest pain, no shortness of breath, no nausea or vomiting, no diarrhea or constipation. No fecal incontinence. No numbness, tingling or weakness down into his extremities. He states he does fall sometimes he feels like it is from not being able to see. He denies any syncope or passing out. He does note he started Avastin in the past month. Past surgical history includes craniotomy, patient follows with oncology to [facility] as well as Dr. Morris locally. No new medications besides the Avastin a month ago. Patient gets frequent MRIs of his brain and PET scans. Related Data Home Medications Medication Instructions Recorded Confirmed amlodipine 10 mg tablet 10 mg PO DAILY 01/28/20 01/16/23 benazepril 20 mg tablet 20 mg PO DAILY 01/28/20 01/16/23 duloxetine 60 mg capsule,delayed 80 mg PO DAILY 01/28/20 01/16/23 release sprinkle levetiracetam 1,000 mg tablet for 3,000 mg PO DAILY 01/28/20 01/16/23 oral suspension phenytoin sodium extended 100 mg 400 mg PO DAILY 01/28/20 01/16/23 capsule (Dilantin Extended) chlorthalidone 25 mg tablet 25 mg PO DAILY 03/13/20 01/16/23 dexamethasone 4 mg tablet 4 mg PO Q OTHER DAY 01/16/23 01/16/23 rosuvastatin 20 mg tablet 20 mg PO DAILY 01/16/23 01/16/23 Previous Rx's Medication Instructions Recorded clotrimazole 1 % topical cream 1 applic topical BID 2 weeks #15 01/16/23 grams Allergies Allergy/AdvReac Type Severity Reaction Status Date / Time No Known Drug Allergies Allergy Verified 01/16/23 12:01 Review of Systems Review of Systems ROS Unobtainable: All systems reviewed & are unremarkable except as noted in HPI and below Patient History Medical History Brain tumor Hypertension Surgical History H/O craniotomy (10/06/17) Family History Mother Heart disease Hypertension Father Hypertension Social History marital status: household members: spouse and children occupational status: previously employed Smoking Status: Never smoker alcohol intake: never substance use type: does not use Smoking Status: Never smoker alcohol intake frequency: holidays/special occasions only Substance Use Type: does not use Exam Narrative Exam Narrative: GEN: well nourished, well appearing male, alert and oriented x 3, patient appears to be in mild distress. HEENT: Atraumatic, pupils are round reactive to light, right is 4-5 mm, left 6- 7, patient states he has been told this in the past that they are slightly diffe rent incise and relates this to prior injury to his right eye he was much younger, extraocular movements are intact, nares are clear, TMs are clear with no fluid, there is no conjunctival pallor. Throat is clear without any exudates, erythema, tonsillar enlargement or uvular deviation HEART: Regular rate and rhythm without murmur, clicks, rubs. No carotid bruits, pulses are equal in upper and lower extremities LUNGS:Lungs clear to auscultation, no wheezes, rales, crackles, chest moves symmetrically ABD:bowel sounds normal, soft, non-tender, no guarding, rebound, rigidity, no masses noted, no hepatosplenomegaly :No CVA tenderness MSCL: Non-tender, no muscle atrophy, muscles strength 5/5 upper and lower extremities, full range of motion NEURO:CN 2-12 intact, sensation normal, reflexes 2/4 upper and lower extremities. finger nose finger test normal, heel sullivan test normal SKIN: Patient has erythematous rash in the right axilla that is scalp on the edges, no fluctuance, no induration, nontender to touch. No skin breakdown. Initial Vital Signs Initial Vital Signs: Vital Signs Temperature 98.1 F 01/16/23 11:30 Pulse Rate 86 01/16/23 11:30 Respiratory Rate 20 01/16/23 11:30 Blood Pressure 134/102 H 01/16/23 11:30 Pulse Oximetry 99 01/16/23 11:30 Oxygen Delivery Method Room Air 01/16/23 11:30 Course Orders Ordered: ED Orders 01/16/23 11:50 CT head/brain wo con Stat 01/16/23 12:00 Complete Blood Count AUTO DIFF Stat Comprehensive Metabolic Panel Stat PTT Partial Thromboplastin Suraj Stat Phenytoin / Dilantin Stat Prothrombin Time INR Stat Troponin & CK Cardiac Panel Stat 01/16/23 12:10 COVID19 -Nasal RAPID Stat 01/16/23 12:16 EKG-12 Lead Stat 01/16/23 13:18 Urinalysis and Microscopic Stat Urine Culture Stat Urine Drug Screen, Rapid Stat Discontinued Medications Sodium Chloride (Normal Saline 0.9%) 1,000 mls @ 500 mls/hr IV BOLUS ONE Stop: 01/16/23 14:25 Last Infusion: 01/16/23 14:28 Dose: 0 mls/hr Documented By: Admin: 01/16/23 12:58 Dose: 500 mls/hr Documented By: ST Vital Signs Vital signs: Vital Signs - 8 hr 01/16/23 11:30 01/16/23 11:45 01/16/23 11:46 Temperature 98.1 F Pulse Rate 86 89 Respiratory Rate 20 14 Blood Pressure 134/102 H 134/102 H Pulse Oximetry 99 97 Oxygen Delivery Method Room Air Room Air 01/16/23 12:07 01/16/23 12:08 01/16/23 12:08 Temperature Pulse Rate 90 88 Respiratory Rate Blood Pressure 148/101 H Pulse Oximetry 97 98 Oxygen Delivery Method 01/16/23 12:30 01/16/23 12:30 01/16/23 13:00 Temperature Pulse Rate 88 Respiratory Rate Blood Pressure 155/98 H 156/105 H Pulse Oximetry 97 Oxygen Delivery Method 01/16/23 13:00 01/16/23 14:42 01/16/23 13:30 Temperature Pulse Rate 88 87 Respiratory Rate 16 22 Blood Pressure Pulse Oximetry 98 99 Oxygen Delivery Method Room Air Room Air 01/16/23 13:33 01/16/23 13:33 01/16/23 14:00 Temperature Pulse Rate 83 95 H Respiratory Rate 13 14 Blood Pressure 137/90 137/98 H Pulse Oximetry 97 98 Oxygen Delivery Method 01/16/23 14:00 01/16/23 14:30 01/16/23 14:40 Temperature Pulse Rate 82 87 Respiratory Rate 17 25 H Blood Pressure 135/87 Pulse Oximetry 96 98 Oxygen Delivery Method 01/16/23 14:40 Temperature Pulse Rate 85 Respiratory Rate Blood Pressure Pulse Oximetry 98 Oxygen Delivery Method MDM - Altered Mental Status Lab Data 01/16/23 12:00 01/16/23 12:00 Labs: Lab Results 01/16/23 01/16/23 01/16/23 Range/Units 12:00 12:00 12:00 WBC 10.4 (4.5-11.0) X10^3/uL RBC 4.32 L (4.5-5.9) X10^6/uL Hgb 15.1 (13.5-17.5) g/dL Hct 41.9 (41-53) % MCV 97.1 (80-100) fL MCH 35.0 H (26-34) PG MCHC 36.0 (30-36) % RDW 14.9 H (11.6-14.8) % Plt Count 182 (150-400) X10^3/uL Neut % (Auto) Not Reportable Lymph % (Auto) Not Reportable Stanley % (Auto) Not Reportable Eos % (Auto) Not Reportable Baso % (Auto) Not Reportable Lymph # (Auto) Not Reportable Stanley # (Auto) Not Reportable Baso # (Auto) Not Reportable Total Counted 100 Seg Neutrophils % 50.0 (38-70) % Lymphocytes % (Manual) 35.0 (25-45) % Monocytes % (Manual) 11.0 (2-11) % Eosinophils % (Manual) 1.0 L (2-4) % Basophils % (Manual) 1.0 (0-1) % Metamyelocytes % 2.0 H (-0) % Neutrophils # (Manual) 5200 (6564-2871) /uL RBC Morphology Normal morphology PT 12.9 H (10.1-12.7) SECONDS INR 1.1 (0.9-1.3) APTT 27 (26-36) SECONDS Sodium 135 L (137-145) mmol/L Potassium 3.5 (3.4-5.1) mmol/L Chloride 96 L (98-107) mmol/L Carbon Dioxide 35 H (22-32) mmol/L BUN 16 (9-20) mg/dL Creatinine 0.83 (0.66-1.25) mg/dL Estimated GFR > 60 (>60) mL/min BUN/Creatinine Ratio 19.3 (6-22) Glucose 286 H (70-100) mg/dL Calcium 8.9 (8.4-10.2) mg/dL Total Bilirubin 0.4 (0.2-1.3) mg/dL AST 26 (17-59) IU/L ALT 61 H (<50) IU/L Alkaline Phosphatase 118 (38-126) U/L Total Creatine Kinase 21 L (55-170) U/L Troponin I < 0.012 (0.01-0.034) ng/mL Total Protein 6.9 (6.3-8.2) g/dL Albumin 3.9 (3.5-5.0) g/dL Globulin 3.0 (1.7-4.1) g/dL Albumin/Globulin Ratio 1.3 (1.0-2.8) Urine Color Urine Appearance Urine pH (4.5-8.0) Ur Specific [place] (1.000-1.035) Urine Protein (Negative) Urine Glucose (UA) (Negative) g/dL Urine Ketones (NEGATIVE) Urine Occult Blood (Negative) Urine Nitrate (Negative) Urine Bilirubin (NEGATIVE) Urine Urobilinogen (0.2) E.U./dL Ur Leukocyte Esterase (NEGATIVE) Urine RBC (0-5/HPF) Urine WBC (0-5/HPF) Ur Squamous Epith Cells (0-5/HPF) Urine Bacteria (None) Hyaline Casts (None) Ur Culture Indicated? U Opiates 300ng/mL cut (Negative) Ur Oxycodone Screen (Negative) Urine Methadone Screen (Negative) Ur Barbiturates Screen (Negative) Phenytoin (10-20) ug/mL U Tricyclic Antidepress (Negative) Ur Phencyclidine Scrn (Negative) Ur Amphetamines Screen (Negative) U Methamphetamines Scrn (Negative) Ur MDMA Scrn (Ecstasy) (Negative) U Benzodiazepines Scrn (Negative) Urine Cocaine Screen (Negative) U Marijuana (THC) Screen (Negative) SARS-CoV-2 (PCR) (Negative) 01/16/23 01/16/23 01/16/23 Range/Units 12:00 12:10 13:18 WBC (4.5-11.0) X10^3/uL RBC (4.5-5.9) X10^6/uL Hgb (13.5-17.5) g/dL Hct (41-53) % MCV (80-100) fL MCH (26-34) PG MCHC (30-36) % RDW (11.6-14.8) % Plt Count (150-400) X10^3/uL Neut % (Auto) Lymph % (Auto) Stanley % (Auto) Eos % (Auto) Baso % (Auto) Lymph # (Auto) Stanley # (Auto) Baso # (Auto) Total Counted Seg Neutrophils % (38-70) % Lymphocytes % (Manual) (25-45) % Monocytes % (Manual) (2-11) % Eosinophils % (Manual) (2-4) % Basophils % (Manual) (0-1) % Metamyelocytes % (-0) % Neutrophils # (Manual) (1461-5692) /uL RBC Morphology PT (10.1-12.7) SECONDS INR (0.9-1.3) APTT (26-36) SECONDS Sodium (137-145) mmol/L Potassium (3.4-5.1) mmol/L Chloride (98-107) mmol/L Carbon Dioxide (22-32) mmol/L BUN (9-20) mg/dL Creatinine (0.66-1.25) mg/dL Estimated GFR (>60) mL/min BUN/Creatinine Ratio (6-22) Glucose (70-100) mg/dL Calcium (8.4-10.2) mg/dL Total Bilirubin (0.2-1.3) mg/dL AST (17-59) IU/L ALT (<50) IU/L Alkaline Phosphatase (38-126) U/L Total Creatine Kinase (55-170) U/L Troponin I (0.01-0.034) ng/mL Total Protein (6.3-8.2) g/dL Albumin (3.5-5.0) g/dL Globulin (1.7-4.1) g/dL Albumin/Globulin Ratio (1.0-2.8) Urine Color Urine Appearance Urine pH (4.5-8.0) Ur Specific [place] (1.000-1.035) Urine Protein (Negative) Urine Glucose (UA) (Negative) g/dL Urine Ketones (NEGATIVE) Urine Occult Blood (Negative) Urine Nitrate (Negative) Urine Bilirubin (NEGATIVE) Urine Urobilinogen (0.2) E.U./dL Ur Leukocyte Esterase (NEGATIVE) Urine RBC (0-5/HPF) Urine WBC (0-5/HPF) Ur Squamous Epith Cells (0-5/HPF) Urine Bacteria (None) Hyaline Casts (None) Ur Culture Indicated? U Opiates 300ng/mL cut Negative (Negative) Ur Oxycodone Screen Negative (Negative) Urine Methadone Screen Negative (Negative) Ur Barbiturates Screen Positive H (Negative) Phenytoin 20.8 H (10-20) ug/mL U Tricyclic Antidepress Negative (Negative) Ur Phencyclidine Scrn Negative (Negative) Ur Amphetamines Screen Negative (Negative) U Methamphetamines Scrn Negative (Negative) Ur MDMA Scrn (Ecstasy) Negative (Negative) U Benzodiazepines Scrn Negative (Negative) Urine Cocaine Screen Negative (Negative) U Marijuana (THC) Screen Positive H (Negative) SARS-CoV-2 (PCR) Negative (Negative) 01/16/23 Range/Units 13:18 WBC (4.5-11.0) X10^3/uL RBC (4.5-5.9) X10^6/uL Hgb (13.5-17.5) g/dL Hct (41-53) % MCV (80-100) fL MCH (26-34) PG MCHC (30-36) % RDW (11.6-14.8) % Plt Count (150-400) X10^3/uL Neut % (Auto) Lymph % (Auto) Stanley % (Auto) Eos % (Auto) Baso % (Auto) Lymph # (Auto) Stanley # (Auto) Baso # (Auto) Total Counted Seg Neutrophils % (38-70) % Lymphocytes % (Manual) (25-45) % Monocytes % (Manual) (2-11) % Eosinophils % (Manual) (2-4) % Basophils % (Manual) (0-1) % Metamyelocytes % (-0) % Neutrophils # (Manual) (3059-8322) /uL RBC Morphology PT (10.1-12.7) SECONDS INR (0.9-1.3) APTT (26-36) SECONDS Sodium (137-145) mmol/L Potassium (3.4-5.1) mmol/L Chloride (98-107) mmol/L Carbon Dioxide (22-32) mmol/L BUN (9-20) mg/dL Creatinine (0.66-1.25) mg/dL Estimated GFR (>60) mL/min BUN/Creatinine Ratio (6-22) Glucose (70-100) mg/dL Calcium (8.4-10.2) mg/dL Total Bilirubin (0.2-1.3) mg/dL AST (17-59) IU/L ALT (<50) IU/L Alkaline Phosphatase (38-126) U/L Total Creatine Kinase (55-170) U/L Troponin I (0.01-0.034) ng/mL Total Protein (6.3-8.2) g/dL Albumin (3.5-5.0) g/dL Globulin (1.7-4.1) g/dL Albumin/Globulin Ratio (1.0-2.8) Urine Color Yellow Urine Appearance Sl cloudy Urine pH 5.0 (4.5-8.0) Ur Specific [place] >=1.030 H (1.000-1.035) Urine Protein 1+ H (Negative) Urine Glucose (UA) 3+ H (Negative) g/dL Urine Ketones Negative (NEGATIVE) Urine Occult Blood 3+ H (Negative) Urine Nitrate Negative (Negative) Urine Bilirubin Negative (NEGATIVE) Urine Urobilinogen 0.2 (0.2) E.U./dL Ur Leukocyte Esterase Negative (NEGATIVE) Urine RBC 30-100/hpf H (0-5/HPF) Urine WBC 1-5/hpf (0-5/HPF) Ur Squamous Epith Cells 0-1 /hpf (0-5/HPF) Urine Bacteria None seen (None) Hyaline Casts 5-10/lpf (None) Ur Culture Indicated? Cult not indicated U Opiates 300ng/mL cut (Negative) Ur Oxycodone Screen (Negative) Urine Methadone Screen (Negative) Ur Barbiturates Screen (Negative) Phenytoin (10-20) ug/mL U Tricyclic Antidepress (Negative) Ur Phencyclidine Scrn (Negative) Ur Amphetamines Screen (Negative) U Methamphetamines Scrn (Negative) Ur MDMA Scrn (Ecstasy) (Negative) U Benzodiazepines Scrn (Negative) Urine Cocaine Screen (Negative) U Marijuana (THC) Screen (Negative) SARS-CoV-2 (PCR) (Negative) Imaging Data CT scan - head: Radiologist's Impression: [place] [address] CT Scan Report Signed Patient: Avtar Lara MR#: [id number] : 1975 Acct:[id number] Age/Sex: 47 / M Date of Service: 01/16/23 Loc: ED Accession Number: [id number] ?? Procedure: CT head/brain wo con Ordering Provider: Kadie Walker P.A-C PROCEDURE:? CT HEAD/BRAIN WO CON ? INDICATIONS:? +brain CA, new urine incontinen pupil discrep tounge deviat ? TECHNIQUE:? Noncontrast 4.5 mm thick angled axial sections acquired from the foramen magnum to the vertex, with coronal and sagittal reformats.? For radiation dose reduction, the following was used:? automated exposure control, adjustment of mA and/or kV according to patient size.? ? COMPARISON:? [facility], MR, MR HEAD/BRAIN WO/W CON, 11/29/2022, 9:41. ? FINDINGS:? Image quality:? Excellent.? ? CSF spaces:? Basal cisterns are patent.? No extra-axial fluid collections.? Ventricles are normal in size and shape.? ? Brain:? Right frontal cranioplasty has been performed with resection of a right frontal tumor.? There is a cystic space in the right frontal lobe measuring 6.1 x 3.2 cm on coronal section extending slightly to the left of the falx, unchanged compared to MRI on 11/29/2022.? Bifrontal lobe white matter edema is unchanged compared to prior MRI.? There is prominence of the 3rd ventricle.? Rightward midline shift seen on the prior study has resolved.? Previously seen spread of malignancy to the left frontal lobe and thalamus are not visualized with CT. ? Skull and face:? Calvarium and visualized facial bones are intact, without suspicious lesions.? ? Sinuses:? Visualized sinuses and mastoids are clear.? ? IMPRESSION:? 1. Postoperative changes of resection of a right frontal lobe tumor. 2. Spread of malignancy to the left frontal lobe and left thalamus as seen on prior MRI on postcontrast imaging is not visualized with CT, however there is no gross structural change compared to the prior MRI on 11/29/2022. 3. No acute intracranial hemorrhage.? ? ? Dictated by: Tawanda Hector M.D. on 01/16/2023 at 11:36 ? ? Approved by: Tawanda Hector M.D. on 01/16/2023 at 11:44?? ECG Data Attestation: I personally reviewed and interpreted this ECG as follows: Interpretation: Sinus rhythm rate 87 RI 150 QRS of 86 and QTC 428. No acute ST elevation depression noted. MDM Narrative Medical decision making narrative: This is a 47-year-old male with known astrocytoma, patient had MRI in November which showed spread of malignancy with some midline shift as well as internal hemorrhage. Internal hemorrhage is not appreciated, there has been improvement of the right midline shift and it has resolved. Patient's labs not show any acute change other than glucose is 286, anion gap is 23. CO2 is 35, troponins negative, UDS shows hematuria no other signs of infection urine culture was sent. Phenotype 20, patient is on Dilantin daily has not had any recent changes. Barbiturates positive on urine drug screen which is consistent with his medications positive for THC. Patient family noted some increasing incontinence, has some hematuria but no clear signs of infection, CT does not show all of his recent malignancy but does not show any new and actually shows improvement of his midline shift. Patient is stable on his current steroid dosage which is likely contributing to his glucose issues. Dilantin level is very slightly elevated but less likely to be a source of his symptoms. He has follow-up next Tuesday. He is noted to have what appears to be a fungal infection in the right axilla but no signs of sepsis. Discussed with patient and family defer repeat MRI at this time we will go ahead and treat for fungal infection, await urine culture and prompt follow- up with Oncology. There was some discussion about dose of dexamethasone states that they were told to wean but they did not have the right amount so they have been doing every other day, asked them to return to dexamethasone 4 mg daily see if this improves any of his symptoms he does not appear to have any worsening midline shift and actually appears improved so suspicion for worsening intracranial change is lower min after discussion about MRI patient defers repeating. We will wait for urine culture as he had blood but no clear infection. Does have what appears to be fungal infection in the right axilla which is likely incidental compared to all his other symptoms. We will treat this and patient has follow up on Tuesday with Oncology. We did discuss return precautions. Discharge Plan Departure Patient Disposition: Home Clinical Impression: Tinea corporis, Hematuria, Incontinence Activity Restrictions/Additional Instructions: Follow up with your oncology team, please review how frequently she will be take your dexamethasone with your oncology team. I would recommend returning to your dexamethasone feel mg once daily to see if this improves symptoms. Your urine shows a little bit of blood but no obvious signs of infection, it has been sent for urine culture if positive should resolve in 48-72 hours and it would be called to start antibiotics. Use topical antifungal to the affected left armpit 2 times daily for 1-2 weeks, if still persisting make sure you follow-up to see if you should continue the medication or if it should be changed. Prescription sent to [facility] in [place]. Please return for new or worsening altered mental status, severe headaches, new numbness, tingling or weakness, speech issues, recurrent or worsening falls, worsening incontinence or other new or concerning changes Prescriptions: New clotrimazole 1 % cream 1 applic topical BID 14 Days Qty: 15 0RF No Action phenytoin sodium extended [Dilantin Extended] 100 mg Capsule 400 mg PO DAILY amlodipine 10 mg Tablet 10 mg PO DAILY benazepril 20 mg Tablet 20 mg PO DAILY levetiracetam 1,000 mg Tablet For Suspension 3,000 mg PO DAILY duloxetine 60 mg Capsule, Delayed Rel Sprinkle 80 mg PO DAILY chlorthalidone 25 mg Tablet 25 mg PO DAILY dexamethasone 4 mg tablet 4 mg PO Q OTHER DAY rosuvastatin 20 mg tablet 20 mg PO DAILY Patient Comments: TAKE 1 TABLET BY MOUTH EVERY DAY Referrals: Reggie Joyner MD [Primary Care Provider] - Stand Alone Forms: Patient Portal/API
[2023-01-16 13:37] LABS: RBC Urine 30-100/HPF (0-5/HPF); WBC Urine 1-5/HPF (0-5/HPF)
[2023-01-16 13:38] LABS: Bacteria Urine None Seen; Culture Indicated Urine Cult Not Indicated; Hyaline Casts Urine 5-10/LPF; Squamous Epithelial Cell Urine 0-1 /HPF (0-5/HPF); UR Morphine/Opiate cutoff 300 Negative (Negative); Ur Creatinine Normal (Normal); Ur Specific Gravity Normal (Normal); Urine Amphetamines Negative (Negative); Urine Barbiturates Positive (Negative); Urine Benzodiazepines Negative (Negative); Urine Cocaine Negative (Negative); Urine MDMA Negative (Negative); Urine Methadone Negative (Negative); Urine Methamphetamines Negative (Negative); Urine Oxycodone Negative (Negative); Urine Phencyclidine Negative (Negative); Urine Tetrahydrocannabinol Positive (Negative); Urine Tricyclic Antidepressant Negative (Negative); Urine pH Normal (Normal)
[2023-01-16 13:54] LABS: PTT Partial Thromboplastin Tim 27 SECONDS (26-36)
--- NOTE | 2023-01-16 14:02 | PC.NURSE ---
Spouse reports worsening confusion for the past couple of weeks. Pt is alert and oriented on assessment, but a poor historian. Denies pain.
== END 2023-01-16 14:42 | disposition home or self-care (01) ==
PROVIDERS: Student in an Organized Health Care Education/Training Program; Emergency Provider Emergency Medicine; PCP Family Medicine
DX: B35.4 Tinea corporis (principal); R31.9 Hematuria, unspecified; R32 Unspecified urinary incontinence; R07.9 Chest pain, unspecified; Z20.822 Contact with and (suspected) exposure to COVID-19
CPT/HCPCS: 36415; 70450; 80053; 80185; 80305; 81001; 82550; 84484; 85007; 85025; 85610; 85730; 87086; 87635; 93005; 99284; C9803; J1642